=== PATIENT | male | born 1985 | race Caucasian/White ===

== ENCOUNTER 2020-06-02 03:10 | Emergency (ER) | payer SELFPAY ==
[~2020-06-02] VITALS: Ht 162.6 cm; Wt 74.8 kg
--- NOTE | 2020-06-02 03:20 | NUR ---
PT BIBSELF C/O PALPITATIONS X3HR SITE AUDITOR. PT ADMITS TO DRINKING ALCOHOL LAST NIGHT. PT APPEARS ANXIOUS. NOTED TACHYCARDIA, MD AWARE. AAOX4. RESPIRATIONS EVEN AND UNLABORED. SKIN WARM AND INTACT. AMBULATORY WITH STEADY GAIT. NO ACUTE DISTRESS NOTED AT THIS TIME. 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
--- NOTE | 2020-06-02 03:22 | NUR ---
MD AT BEDSIDE FOR EVALUATION
[2020-06-02] MEDS ORDERED: CHLORDIAZEPOXIDE HCL 25 MG CAPSULE ONE (03:26)
[2020-06-02] MEDS ORDERED: CHLORDIAZEPOXIDE HCL 25 MG CAPSULE PO ONE (03:30)
--- NOTE | 2020-06-02 04:29 | NUR ---
Patient discharged to home in stable condition. Written and verbal after care instructions given. Patient verbalizes understanding of instruction. ambulatory with a steady gait noted. pt aaox4 no acute distress noted, resp even and unlabored. pt denies pain or discomfort at this time. advice pt not to drive or operate any machinery due to pt was given narcotic medicine. pt verbalize understanding of instruction.
[2020-06-02 04:31] VITALS: BP 4/62
== END 2020-06-02 04:31 | disposition home or self-care (01) ==
LOC: ER 03:10
DX: F10.239 Alcohol dependence with withdrawal, unspecified (principal); Y90.9 Presence of alcohol in blood, level not specified

== ENCOUNTER 2021-04-06 04:58 | Emergency (ER) | payer SELFPAY ==
[~2021-04-06] VITALS: Ht 162.6 cm; Wt 77.1 kg
[2021-04-06 05:10] VITALS: BP 144/86
== END 2021-04-06 05:49 | disposition home or self-care (01) ==
LOC: ER 04:59
DX: F41.0 Panic disorder [episodic paroxysmal anxiety] (principal)